=== PATIENT | male | born 1985 | race African-American/Black ===

== ENCOUNTER 2020-11-05 20:07 | Emergency (ER) | payer OTHER ==
[~2020-11-05] VITALS: Ht 185.4 cm; Wt 87.5 kg
[2020-11-06] MEDS ORDERED: NAPR-837 PO (00:15)
[2020-11-06] MEDS ORDERED: methocarbamoL 750 MG TAB PO ONE (00:15)
[2020-11-06] MEDS ORDERED: LIDOCAINE 5% (LIDODERM) PATCH TD ONE (00:15)
[2020-11-06] MEDS ORDERED: NAPROXEN 250 MG TAB PO ONE (00:15)
[2020-11-06] MEDS ORDERED: LIDO5DIS41 TD (00:15)
[2020-11-06] MEDS ORDERED: ROBA750T4 PO (00:15)
[2020-11-06] MEDS ORDERED: ACETAMINOPHEN 500 MG TAB PO ONE (00:20)
[2020-11-06 00:28] VITALS: BP 117/71
[2020-11-06] MEDS ORDERED: **NOTE PATIENT COMMENT** MISC XX ONE (12:15)
== END 2020-11-06 02:09 | disposition home or self-care (01) ==
LOC: M ED 20:07
DX: S39.012A Strain of muscle, fascia and tendon of lower back, initial encounter (principal); S16.1XXA Strain of muscle, fascia and tendon at neck level, initial encounter; V49.40XA Driver injured in collision with unspecified motor vehicles in traffic accident, initial encounter; Y92.9 Unspecified place or not applicable; Y93.9 Activity, unspecified; Y99.9 Unspecified external cause status